=== PATIENT | female | born 1940 | race Caucasian/White ===

== ENCOUNTER 2019-05-22 10:01 | Inpatient (IN) | payer MEDICARE, SELFPAY ==
[2019-05-22] VITALS (7 sets, daily range): BP systolic 103–150; BP diastolic 47–79; PULSE 68–101; RESP 16–20; TEMP 36.6–37.6; O2SAT 96–100; BMI 19.4
--- NOTE | ~2019-05-22 | US_ITS ---
EXAMINATION: US venous doppler LE RT DATE: 05/23/2019 08:48 INDICATION: Right lower limb edema TECHNIQUE: Bowen scale images without and with compression and Doppler images of the right lower extre mity veins were obtained. COMPARISON: None. FINDINGS: The right common femoral vein, profunda femoral vein, femoral vein, popliteal vein, peronea l trunk, posterior tibial veins, and greater saphenous vein are patent. IMPRESSION: 1. Patent right lower extremity veins. No evidence of deep venous thrombosis. Reviewed, dictated and finalized at location B.
[2019-05-22] MEDS: SODIUM CHLORIDE 0.9% IV 500 ML 999 ML IV CONT (10:23)
--- NOTE | 2019-05-22 10:26 | ED.GENADULT ---
HPI - General Adult General Chief complaint: Extremity Injury, Lower <Ward Dodge PA-C - Last Filed: 05/22/19 11:54> Stated complaint: RASH <Ward Dodge PA-C - Last Filed: 05/22/19 11:54> Source: patient <Ward Dodge PA-C - Last Filed: 05/22/19 11:54> Mode of arrival: ambulatory <Ward Dodge PA-C - Last Filed: 05/22/19 11:54> Limitations: no limitations <Ward Dodge PA-C - Last Filed: 05/22/19 11:54> History of Present Illness HPI narrative: Patient is a 78-year-old female who presents from home per EMS for evaluation of infection of the right leg with skin tear to the anterior tillman and with resultant redness tenderness and swelling from the foot to the level of the knee patient complains of mild aching pain worse with activity. Patient is a limited historian secondary to dementia. <Ward Dodge PA-C - Last Filed: 05/22/19 11:54> Related Data Home medications: Home Medications Medication Instructions Recorded Confirmed conjugated estrogens [Premarin] 0.625 mg PO DAILY 05/22/19 hydrochlorothiazide 25 mg PO DAILY 05/22/19 ibuprofen 800 mg PO TID PRN 05/22/19 levothyroxine 88 mcg PO DAILY 05/22/19 simvastatin 40 mg PO DAILY 05/22/19 <Ward Dodge PA-C - Last Filed: 05/22/19 11:54> Allergies/adverse reactions: Allergies Allergy/AdvReac Type Severity Reaction Status Date / Time No Known Allergies Allergy Verified 05/22/19 10:11 <Ward Dodge PA-C - Last Filed: 05/22/19 11:54> Review of Systems Review of Systems: Narrative: Review of systems somewhat limited secondary to history of dementia <Ward Dodge PA-C - Last Filed: 05/22/19 11:54> All systems reviewed & are unremarkable except as noted in HPI and below <Ward Dodge PA-C - Last Filed: 05/22/19 11:54> PMFSH Past Medical History Medical History: Medical History (Updated 05/22/19 @ 11:39 by Ward Dodge PA-C) Dementia <Ward Dodge PA-C - Last Filed: 05/22/19 11:54> Social History Social History: Social History (Updated 05/22/19 @ 10:27 by Ward Dodge PA-C) Smoking status: Never smoker Living arrangements: with family Gender identity (if verbalized by the patient): Female <Ward Dodge PA-C - Last Filed: 05/22/19 11:54> Exam Narrative: Exam Narrative: GENERAL: Well-appearing, well-nourished, and in no acute distress. HEAD: Normocephalic, atraumatic. EYES: PERRLA and EOMI. ENT: Nares clear, no rhinorrhea or epistaxis. Mucous membranes moist. CHEST: Clear to auscultation. No respiratory distress. No wheezes rales or rhonchi HEART: Regular rate and rhythm. No murmur heard. Normal peripheral pulses. ABDOMEN: Soft, nontender, nondistended EXTREMITIES: Normal range of motion. No edema. Patient with skin tear to the anterior right tillman with some clear discharge dried over the lower tillman with erythema that is splotchy circumferential and extends from the foot up to the level of the knee SKIN: Warm, dry, no rash. NEURO: No focal deficits. Alert and oriented x3. Neurovascularly intact. Capillary refill less than 2-second PSYCH: Normal mood and affect. <Ward Dodge PA-C - Last Filed: 05/22/19 11:54> Course Course Emergency Course: Patient aware of case findings treatment plan and diagnosis to the best of her abilities given her dementia will be kept in hospital <Ward Dodge PA-C - Last Filed: 05/22/19 11:54> COFFEE GROWER/PA Physician Supervision For this encounter, I have reviewed the PA documentation, treatment plan and medical decision making: And I have had [id number] time with the patient. On exam heart regular rate and rhythm without murmur lungs clear to all station bilaterally, the right lower extremity has erythematous rash consistent with cellulitis agrees plan for admission at this time with further inpatient treatment <Joao Whitten DO - Last Filed: 05/22/19 12:20> Consultat
[2019-05-22 10:33] LABS: Basophils Percent Auto 0.1 % (0.2-1.2); Eosinophils Absolute Auto 0.4 K/mm3 (0-0.3); Eosinophils Percent Auto 1.7 % (0-4.4); Hematocrit 33.8 % (37.0-47.0); Hemoglobin 11.5 g/dL (12.0-15.0); Immature Granulocyte Absolute 0.25 K/mm3 (0.00-0.031); Immature Granulocyte Percent A 1.1 % (0-0.5); Lymphocytes Percent Auto 2.1 % (18.3-44.2); Mean Corpuscular Hemoglobin 30.4 pg (26-34); Mean Corpuscular Volume 89.4 fl (80-100); Mean Platelet Volume 9.8 fl (7.4-10.4); Monocytes Absolute Auto 0.7 K/mm3 (0.1-0.6); Monocytes Percent Auto 2.9 % (2.6-8.5); Neutrophils Absolute Auto 21.6 K/mm3 (1.3-6.7); Neutrophils Percent Auto 92.1 % (45.5-73.1); Platelet Count Result 359 k/mm3 (150-375); Red Blood Count 3.78 M/mm3 (4.2-5.4); Red Cell Distribution Width 13.8 % (11.5-14.5); White Blood Count 23.5 K/mm3 (4.5-10.0)
[2019-05-22 10:37] LABS: Add Urine Microscopic? YES; Appearance Urine Cloudy (Clear); Bacteria Urine Trace /hpf; Bilirubin Urine Negative (Negative); Blood Urine 1+ (Negative); Color Urine Yellow (Yellow); Glucose Urine UA Negative (Negative); Ketones Urine Negative (Negative); Leukocyte Esterase Ur Negative LEU/UL (Negative); Nitrate Urine Negative (Negative); Protein Urine 2+ mg/dL (Negative); Specific Grav Ur 1.014 (1.001-1.035); Squamous Epithelial Cell Urine Few /hpf (Few); Urobilinogen Urine Negative mg/dL (<2.0)
[2019-05-22 10:44] LABS: Prothrombin Time 13.1 Seconds (11.1-14.7)
[2019-05-22 10:45] LABS: Partial Thromboplastin Time 35.4 SECONDS (22.3-36.8)
[2019-05-22 10:47] LABS: Lactic Acid Reflex 0.9 mmol/L (0.7-2.1)
[2019-05-22 10:54] LABS: Alanine Aminotransferase 36 U/L (4-35); Albumin Level 3.9 g/dL (3.5-5.1); Alkaline Phosphatase 203 U/L (38-126); Aspartate Amino Transferase 43 U/L (14-36); Bilirubin,Total 0.8 mg/dL (0.2-1.3); Blood Urea Nitrogen 51 mg/dL (7-17); Calcium 9.1 mg/dL (8.4-10.2); Carbon Dioxide 24 mmol/L (22-30); Chloride 97 mmol/L (98-107); Estimated CRCL calculation 16 ml/min; Estimated Glomerular Filt Rate 21; Glucose 102 mg/dL (65-105); Potassium 2.7 mmol/L (3.4-5.0); Sodium 139 mmol/L (137-145)
--- NOTE | 2019-05-22 10:58 | PC.NURSE ---
Spoke with stepdaughter, family is unsure of pt's meds because she locks them up. Family called pharmacy to get list. Pt had scripts for potassium and hydroxyzine but has not filled them for a long time. Other meds have been filled in February.
--- NOTE | 2019-05-22 11:18 | ECG_ITS ---
Measurements Intervals [place] Rate: 95 P: 70 PA: 151 QRS: 3 QRSD: 100 T: 67 QT: 288 QTc: 364 Interpretive Statements SINUS RHYTHM ATRIAL AND VENTRICULAR PREMATURE COMPLEXES NONSPECIFIC ST & T-WAVE ABNORMALIT- ANTEROLAT/LAT LEADS BASELINE ARTIFACT- I, II, III, AVR, AVL, AVF, V1 BORDERLINE ECG Electronically Signed On 05-22-2019 12:39:17 CDT by Stephan Branham D.O.
[2019-05-22] MEDS: POTASSIUM CHLORIDE 20 MEQ PACKET (FOR LIQUID) 40 MEQ PO (11:40)
[2019-05-22 11:41] LABS: Magnesium 1.6 mg/dL (1.6-2.3)
[2019-05-22 11:49] LABS: CRP 39.1 mg/dL (<1.0)
[2019-05-22] MEDS: MAGNESIUM SULF 2 GM/WATER 50ML 2 GM/50 ML BAG IVPB (11:57)
--- NOTE | 2019-05-22 13:06 | ADMGEN ---
This patient, Karon Zayas, was admitted to 2 Medical Room 251-. Patient/family oriented to hospital policies and general routines including ID bracelet, bed and alarms, visiting hours, pain management, procedures, bathroom and other care routines, personal items, smoking policy, room service/diet, and visiting hours. Valuables list has been completed. Information on how to activate the Rapid Response Team has been discussed. Patient/Family are encouraged to report perceived risks to care and to ask questions if they do not understand what they are told or what they should do.
[2019-05-22 14:12] LABS: Creatine Kinase 34 U/L (30-135); Magnesium 2.5 mg/dL (1.6-2.3); Phosphorus 3.3 mg/dL (2.5-4.5)
[2019-05-22 14:25] LABS: Iron 17 ug/dL (37-170)
[2019-05-22 14:35] LABS: Percent Iron Saturation 5 % (20-50)
[2019-05-22 14:44] LABS: Hepatitis B Surface Antigen Negative (Negative)
[2019-05-22 14:49] LABS: HAV RESULT Negative (Negative); Hepatitis B Core IgM Result Negative (Negative)
[2019-05-22] MEDS: SODIUM CHLORIDE 0.9% IV 1,000 ML 100 ML IV CONT (15:00)
[2019-05-22 15:01] LABS: Hepatitis C Virus Antibody Negative (Negative)
[2019-05-22 15:12] LABS: Vitamin B12 > 1000.0 pg/mL (239-931)
--- NOTE | 2019-05-22 17:00 | PM.IMHP ---
H&P: [facility] History of Present Illness Chief complaint: Fall, right leg wound. Narrative: Karon Zayas is a 78-year-old female with dementia, hypertension, and hypothyroidism who presented to the emergency department earlier today via EMS from home for evaluation after a fall and of a right leg wound. Given her dementia, she is unable to provide an accurate history. According to EMS run report, the patient lives with her step daughter who reported that the patient slid out of her chair earlier today and was refusing to let the daughter help her up. There was no head trauma or loss of consciousness. She was not injured when she slid out of the chair onto her buttocks. It was noted that she had significant erythema to the right lower extremity, and with further questioning it has been present for a couple of weeks. They assumed it was some sort of rash and have been treating it with topical steroids without benefit. She was found to have cellulitis of that limb and is being admitted in this setting. At the time my evaluation, the patient is sitting in a chair at the side of the bed in is eating dinner. She has a wound noted on that right leg, but cannot tell me how or when it happened (appears old). She does complain of a burning pain in the right leg, mainly with touch. She has had some chills but denies fever and sweats. To her knowledge, she has no history of venous thromboembolism. She denies nausea and vomiting. 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 Review of Systems Review of Systems: Narrative: Unable to obtain accurately given her dementia. Except as documented in the HPI, she states no for every other question asked of her. [facility] [place] Past Medical History Medical History (Updated 05/22/19 @ 13:33 by Aury Jara PA-C) Dementia History of MRSA infection Hyperlipidemia Hypertension Hypothyroidism Surgical History Surgical History (Updated 05/22/19 @ 13:28 by Aury Jara PA-C) History of hysterectomy History of pelvic surgery Pelvic floor reconstruction for prolapse. Social History Social History (Updated 05/22/19 @ 21:39 by Auyr Jara PA-C) Social History: The patient lives in [place]. Her stepdaughter, Emily, apparently lives at home with her. She has a dog as well. She cannot provide me with her family history, but tells me that she had 1 daughter who is with unclear cause of . She is a lifelong nonsmoker and denies alcohol and drug use. She tells me she used to work at [employer] in [facility]. She designates her stepsonShahbaz, as her surrogate decision maker. She wishes to be a full code. Spiritual care concerns: No Agree to blood products: Yes Meds Home Medications and Allergies Home Medications Medication Instructions Recorded Confirmed Type calcium carbonate [Tums Extra 300 mg PO TID PRN 05/22/19 05/22/19 History Strength Smoothies] chlorzoxazone 500 mg PO HS 05/22/19 05/22/19 History cholecalciferol (vitamin D3) 125 mcg PO DIRECTED 05/22/19 05/22/19 History [Vitamin D3] conjugated estrogens [Premarin] 0.625 mg PO DAILY 05/22/19 05/22/19 History fexofenadine [Briseida Allergy] 60 mg PO Q12H 05/22/19 05/22/19 History hydrochlorothiazide 25 mg PO DAILY 05/22/19 05/22/19 History ibuprofen 800 mg PO TID PRN 05/22/19 05/22/19 History levothyroxine 88 mcg PO DAILY 05/22/19 05/22/19 History omega [id number]-fish oil [[place]-3 1 cap PO DAILY 05/22/19 05/22/19 History Fish Oil] potassium chloride 10 meq PO DAILY 05/22/19 05/22/19 History simvastatin 40 mg PO DAILY 05/22/19 05/22/19 History Allergies Allergy/AdvReac Type Severity Reaction Status Date / Time levofloxacin Allergy Other Verified 05/22/19 13:49 atorvastatin AdvReac Muscle Pain Verified 05/22/19 13:48 Vital Signs Vital Signs - 24 hr 05/22/19 10:01 05/22/19 12:09 05/22/19 12:47 Temperature 97.8 F 99.7 F H Pu
[2019-05-22 17:22] LABS: Free T4 Free Thyroxine Reflex 0.96 ng/dL (0.78-2.19)
[2019-05-22 22:24] LABS: Total Triiodothyronine (T3) 0.51 NG/ML (0.97-1.69)
[2019-05-22 23:53] LABS: Folic Acid > 20.0 ng/mL (2.76->20)
[2019-05-23] VITALS (9 sets, daily range): BP systolic 104–133; BP diastolic 58–61; PULSE 67–92; RESP 18–20; TEMP 36.3–36.6; O2SAT 97–100
[2019-05-23] MEDS: SODIUM CHLORIDE 0.9% IV 1,000 ML 100 ML IV CONT ×2 (03:31→14:39)
[2019-05-23 05:08] LABS: Basophils Absolute Auto 0.2 K/mm3 (0.0-0.1); Basophils Percent Auto 0.7 % (0.2-1.2); Eosinophils Absolute Auto 0.3 K/mm3 (0-0.3); Eosinophils Percent Auto 1.6 % (0-4.4); Hematocrit 28.6 % (37.0-47.0); Hemoglobin 9.8 g/dL (12.0-15.0); Immature Granulocyte Absolute 0.89 K/mm3 (0.00-0.031); Immature Granulocyte Percent A 4.4 % (0-0.5); Lymphocytes Absolute Auto 0.71 K/mm3 (0.9-3.2); Lymphocytes Percent Auto 3.5 % (18.3-44.2); Mean Corpuscular HGB Conc 34.3 g/dl (32-36); Mean Corpuscular Hemoglobin 30.6 pg (26-34); Mean Corpuscular Volume 89.4 fl (80-100); Mean Platelet Volume 9.5 fl (7.4-10.4); Monocytes Absolute Auto 0.7 K/mm3 (0.1-0.6); Monocytes Percent Auto 3.6 % (2.6-8.5); Neutrophils Absolute Auto 17.5 K/mm3 (1.3-6.7); Neutrophils Percent Auto 86.2 % (45.5-73.1); Platelet Count Result 318 k/mm3 (150-375); Red Cell Distribution Width 13.8 % (11.5-14.5); White Blood Count 20.3 K/mm3 (4.5-10.0)
[2019-05-23 05:47] LABS: Alanine Aminotransferase 23 U/L (4-35); Albumin Level 2.9 g/dL (3.5-5.1); Alkaline Phosphatase 162 U/L (38-126); Aspartate Amino Transferase 28 U/L (14-36); Bilirubin,Total 0.5 mg/dL (0.2-1.3); Blood Urea Nitrogen 32 mg/dL (7-17); Calcium 8.3 mg/dL (8.4-10.2); Carbon Dioxide 21 mmol/L (22-30); Chloride 106 mmol/L (98-107); Estimated CRCL calculation 32 ml/min; Estimated Glomerular Filt Rate 48; Glucose 106 mg/dL (65-105); Potassium 2.7 mmol/L (3.4-5.0); Sodium 137 mmol/L (137-145)
[2019-05-23] MEDS: LEVOTHYROXINE SODIUM 88 MCG TABLET PO (06:29)
[2019-05-23] MEDS: POTASSIUM CHLORIDE 20 MEQ TABLET 80 MEQ PO (06:30)
[2019-05-23] MEDS: POTASSIUM CHLORIDE 10 MEQ TABLET.ER PO (09:07)
--- NOTE | 2019-05-23 10:39 | PM.IMPN ---
Progress Note: A&P Assessment and Plan (1) Fall: Code(s): W19.XXXA - Unspecified fall, initial encounter Status: Acute Assessment and Plan: Accidental fall, continue PT/ OT for falls (2) Hypertension: Code(s): I10 - Essential (primary) hypertension Status: Chronic Assessment and Plan: Chronic and stable continue to monitor, Bp is 120/60 (3) Dementia: Code(s): F03.90 - Unspecified dementia without behavioral disturbance Status: Chronic Assessment and Plan: Chronic and stable, pt is on chlorzoxane (4) Elevated LFTs: Code(s): R94.5 - Abnormal results of liver function studies Status: Acute (5) Normocytic anemia: Code(s): D64.9 - Anemia, unspecified Status: Acute Assessment and Plan: Hb is 9.8 (6) Hypokalemia: Code(s): E87.6 - Hypokalemia Status: Acute Assessment and Plan: Potassium is 2.7, continue to supplement. (7) Acute kidney injury: Code(s): N17.9 - Acute kidney failure, unspecified Status: Resolved Assessment and Plan: Creat is 1.1 (8) Cellulitis of right leg: Code(s): L03.115 - Cellulitis of right lower limb Status: Acute Assessment and Plan: Pt is on iv cefazolin, can swab leg when blister opens. Venous doppler neg, Pt seen by wound care, adviced to keep wound open. (9) Sepsis: Code(s): A41.9 - Sepsis, unspecified organism Status: Acute Assessment and Plan: WCc is 20,000. BC are pending. Pt is on iv cefazolin. Continue to watch for low-grade fever, leukocytosis. Subjective Date/time seen: 05/23/19 10:39 Interval history: 78-year-old female with dementia, hypertension, and hypothyroidism who presented to the emergency department earlier today via EMS from home for evaluation after a fall and of a right leg wound. Pt is pleasantly confused. Pt has a skin tear on her R leg with surrounding redness and cellulitis. Sounds like a accidental fall. Review of Systems Constitutional: Constitutional: Denies body ache(s), Denies fatigue, Denies lethargy and Reports weakness (generalised weakness ) Cardiovascular: Cardiovascular: Reports no additional cardiovascular complaints Respiratory: Respiratory: Denies no additional respiratory complaints Gastrointestinal: Gastrointestinal: Denies no additional gastrointestinal complaints Musculoskeletal: Comments: R leg wound with skin tear Exam Narrative: Exam Narrative: General: Elderly lady pleasantly confused. HEENT: Normocephalic, atraumatic. PERRLA Neck: Supple. Respiratory: Lungs are clear to auscultation bilaterally. Cardiovascular: Regular rate and rhythm with S1-S2. Gastrointestinal: Abdomen is soft, nontender, and nondistended with positive bowel sounds. Skin: Warm and dry. R lower leg red patches, with R skin tear dried with some blister area Extremities: No cyanosis or clubbing. Neurological: Disoriented x3 Psychiatric: Pleasantly confused and cooperative. Objective Data Vital Signs Vital Signs: Vital Signs - 24 hr 05/22/19 12:09 05/22/19 12:47 05/22/19 14:00 Temperature 37.6 C H 36.7 C Pulse Rate 90 68 82 Respiratory Rate 18 19 16 Blood Pressure 119/62 109/79 103/47 L Pulse Oximetry 98 96 98 05/22/19 16:00 05/22/19 20:00 05/22/19 22:00 Temperature 36.9 C Pulse Rate 80 98 97 Respiratory Rate 16 20 Blood Pressure 125/58 L Pulse Oximetry 98 100 05/23/19 00:00 05/23/19 04:00 05/23/19 05:50 Temperature 36.6 C Pulse Rate 90 84 86 Respiratory Rate 20 Blood Pressure 120/60 Pulse Oximetry 97 Intake/Output Intake/Output: Intake & Output 05/20/19 05/21/19 05/22/19 05/23/19 23:59 23:59 23:59 23:59 Intake Total 1250 1240 Output Total 900 550 Balance 350 690 Meds/Results Medications: Active Medications Generic Name Dose Route Start Last Admin Trade Name Freq PRN Reason Stop Dose Admin Calcium Carbonate 300 m
[2019-05-23 14:51] LABS: Potassium 2.6 mmol/L (3.4-5.0)
[2019-05-24] VITALS (9 sets, daily range): BP systolic 124–125; BP diastolic 59–70; PULSE 75–96; RESP 16–18; TEMP 36.3–36.8; O2SAT 96–100
[2019-05-24] MEDS: SODIUM CHLORIDE 0.9% IV 1,000 ML 100 ML IV CONT ×2 (04:03→14:03)
[2019-05-24] MEDS: LEVOTHYROXINE SODIUM 88 MCG TABLET PO (05:44)
[2019-05-24] MEDS: POTASSIUM CHLORIDE 10 MEQ TABLET.ER PO (08:19)
[2019-05-24] MEDS: POTASSIUM CHLORIDE 20 MEQ TABLET.ER 40 MEQ PO (09:04)
[2019-05-24 09:24] LABS: Hematocrit 31.6 % (37.0-47.0); Hemoglobin 10.5 g/dL (12.0-15.0); Mean Corpuscular HGB Conc 33.2 g/dl (32-36); Mean Corpuscular Hemoglobin 30.3 pg (26-34); Mean Corpuscular Volume 91.1 fl (80-100); Mean Platelet Volume 9.3 fl (7.4-10.4); Platelet Count Result 336 k/mm3 (150-375); Red Blood Count 3.47 M/mm3 (4.2-5.4); Red Cell Distribution Width 14.3 % (11.5-14.5); White Blood Count 17.2 K/mm3 (4.5-10.0)
[2019-05-24 09:49] LABS: Blood Urea Nitrogen 15 mg/dL (7-17); Calcium 7.9 mg/dL (8.4-10.2); Carbon Dioxide 21 mmol/L (22-30); Chloride 108 mmol/L (98-107); Estimated CRCL calculation 52 ml/min; Estimated Glomerular Filt Rate > 60; Glucose 120 mg/dL (65-105); Potassium 3.4 mmol/L (3.4-5.0); Sodium 137 mmol/L (137-145)
--- NOTE | 2019-05-24 11:55 | PM.IMPN ---
Progress Note: A&P Assessment and Plan (1) Fall: Code(s): W19.XXXA - Unspecified fall, initial encounter Status: Acute Assessment and Plan: Accidental fall, continue PT/ OT for falls (2) Hypertension: Code(s): I10 - Essential (primary) hypertension Status: Chronic Assessment and Plan: Chronic and stable continue to monitor, Bp is 120/70 (3) Dementia: Code(s): F03.90 - Unspecified dementia without behavioral disturbance Status: Chronic Assessment and Plan: Chronic and stable, pt is on chlorzoxane (4) Elevated LFTs: Code(s): R94.5 - Abnormal results of liver function studies Status: Resolved (5) Normocytic anemia: Code(s): D64.9 - Anemia, unspecified Status: Acute Assessment and Plan: Hb is 10.5 (6) Hypokalemia: Code(s): E87.6 - Hypokalemia Status: Resolved Assessment and Plan: Potassium is 3.4 (7) Acute kidney injury: Code(s): N17.9 - Acute kidney failure, unspecified Status: Resolved Assessment and Plan: Creat is 0.7 (8) Cellulitis of right leg: Code(s): L03.115 - Cellulitis of right lower limb Status: Acute Assessment and Plan: Pt is on iv cefazolin, can swab leg when blister opens. Venous doppler neg, Pt seen by wound care, adviced to keep wound open. (9) Sepsis: Code(s): A41.9 - Sepsis, unspecified organism Status: Acute Assessment and Plan: WCc is 17,000. BC are pending. wound culture is pending. Pt is on iv cefazolin. Continue to watch for low-grade fever and leukocytosis. hopeful discharge in 1-2 days time. Subjective Date/time seen: 05/24/19 11:55 Interval history: 78-year-old female with dementia, hypertension, and hypothyroidism who presented to the emergency department earlier today via EMS from home for evaluation after a fall and of a right leg wound. Pt is pleasantly confused. Pt has a superficial wound and blisters on her R leg with surrounding redness and cellulitis. Sounds like a accidental fall. Review of Systems Constitutional: Constitutional: Denies body ache(s), Denies fatigue, Denies lethargy and Reports weakness (generalised weakness ) Cardiovascular: Cardiovascular: Reports no additional cardiovascular complaints Respiratory: Respiratory: Denies no additional respiratory complaints Gastrointestinal: Gastrointestinal: Denies no additional gastrointestinal complaints Neurologic: Reports weakness (generalised weakness ) Endocrine: Endocrine: Denies fatigue Exam Narrative: Exam Narrative: General: Elderly lady pleasantly confused. HEENT: Normocephalic, atraumatic. PERRLA Neck: Supple. Respiratory: Lungs are clear to auscultation bilaterally. Cardiovascular: Regular rate and rhythm with S1-S2. Gastrointestinal: Abdomen is soft, nontender, and nondistended with positive bowel sounds. Skin: Warm and dry. R lower leg red patches, with R leg wound dried with some blister area. Red area is clearing. Extremities: No cyanosis or clubbing. Neurological: Disoriented x3 Psychiatric: Pleasantly confused and cooperative. Objective Data Vital Signs Vital Signs: Vital Signs - 24 hr 05/23/19 12:00 05/23/19 13:29 05/23/19 16:00 Temperature 36.4 C Pulse Rate 92 67 87 Respiratory Rate 20 Blood Pressure 104/58 L Pulse Oximetry 100 05/23/19 20:00 05/23/19 21:11 05/24/19 00:00 Temperature 36.3 C L Pulse Rate 91 85 86 Respiratory Rate 18 Blood Pressure 133/61 Pulse Oximetry 99 05/24/19 04:00 05/24/19 06:14 05/24/19 08:00 Temperature 36.3 C L Pulse Rate 87 95 96 Respiratory Rate 18 Blood Pressure 125/70 Pulse Oximetry 96 Intake/Output Intake/Output: Intake & Output 05/21/19 05/22/19 05/23/19 05/24/19 23:59 23:59 23:59 23:59 Intake Total 1250 3839 1051 Output Total 900 1100 1200 Balance 350 2509 -204 Meds/Results Medications: Active Medications G
--- NOTE | 2019-05-24 15:47 | PC.NURSE ---
Patient very upset and stating Take this bandage off my leg. I can't stand it anymore! I asked the patient if her leg was hurting and she stated yes . I offered pain medication but patient stated I don't want pain medication. I just want this dressing off! I explained to patient that her leg is draining and the dressing is keeping the drainage contained. Patient states I don't care. I want it to drain out in the bed. Patient adamant and trying to pull at dressing. Removed dressing. Assisted patient back to bed and placed a chux pad under patient's RLE. Also placed a chux pad on top of patients leg. Patient now satisfied and resting quietly in bed.
[2019-05-25] VITALS (9 sets, daily range): BP systolic 126–134; BP diastolic 58–84; PULSE 77–102; RESP 18–20; TEMP 36.8–37; O2SAT 96–100
[2019-05-25] MEDS: SODIUM CHLORIDE 0.9% IV 1,000 ML 100 ML IV CONT ×2 (01:45→18:13)
[2019-05-25 05:25] LABS: Hematocrit 30.7 % (37.0-47.0); Hemoglobin 10.2 g/dL (12.0-15.0); Mean Corpuscular HGB Conc 33.2 g/dl (32-36); Mean Corpuscular Hemoglobin 30.7 pg (26-34); Mean Corpuscular Volume 92.5 fl (80-100); Mean Platelet Volume 9.1 fl (7.4-10.4); Platelet Count Result 352 k/mm3 (150-375); Red Blood Count 3.32 M/mm3 (4.2-5.4); Red Cell Distribution Width 14.3 % (11.5-14.5); White Blood Count 13.6 K/mm3 (4.5-10.0)
[2019-05-25 05:35] LABS: Blood Urea Nitrogen 13 mg/dL (7-17); Calcium 7.9 mg/dL (8.4-10.2); Carbon Dioxide 23 mmol/L (22-30); Chloride 107 mmol/L (98-107); Estimated CRCL calculation 52 ml/min; Estimated Glomerular Filt Rate > 60; Glucose 94 mg/dL (65-105); Potassium 3.7 mmol/L (3.4-5.0); Sodium 137 mmol/L (137-145)
[2019-05-25] MEDS: LEVOTHYROXINE SODIUM 88 MCG TABLET PO (05:52)
[2019-05-25] MEDS: OMEGA 3 POLYUNSAT FATTY ACIDS 1 GM CAP PO (08:40)
[2019-05-25] MEDS: POTASSIUM CHLORIDE 20 MEQ TABLET.ER 40 MEQ PO (08:41)
[2019-05-25] MEDS: LORATADINE 10 MG TABLET PO (08:41)
[2019-05-25] MEDS: CHOLECALCIFEROL 1,000 UNIT TABLET 5000 UNITS PO (08:41)
[2019-05-25] MEDS: POTASSIUM CHLORIDE 10 MEQ TABLET.ER PO (08:42)
--- NOTE | 2019-05-25 11:51 | PM.IMPN ---
Progress Note: A&P Assessment and Plan (1) Fall: Code(s): W19.XXXA - Unspecified fall, initial encounter Status: Acute Assessment and Plan: Accidental fall, continue PT/ OT for falls (2) Hypertension: Code(s): I10 - Essential (primary) hypertension Status: Chronic Assessment and Plan: Chronic and stable continue to monitor, Bp is 128/58 (3) Dementia: Code(s): F03.90 - Unspecified dementia without behavioral disturbance Status: Chronic Assessment and Plan: Chronic and stable, pt is on chlorzoxane (4) Elevated LFTs: Code(s): R94.5 - Abnormal results of liver function studies Status: Resolved (5) Normocytic anemia: Code(s): D64.9 - Anemia, unspecified Status: Acute Assessment and Plan: Hb is 10.2 (6) Hypokalemia: Code(s): E87.6 - Hypokalemia Status: Resolved Assessment and Plan: Potassium is 3.7 (7) Acute kidney injury: Code(s): N17.9 - Acute kidney failure, unspecified Status: Resolved Assessment and Plan: Creat is 0.7 (8) Cellulitis of right leg: Code(s): L03.115 - Cellulitis of right lower limb Status: Acute Assessment and Plan: Pt is on iv cefazolin, can swab leg when blister opens. Venous doppler neg, Pt seen by wound care, advised to keep wound open. Bc and wound culture negative to date. (9) Sepsis: Code(s): A41.9 - Sepsis, unspecified organism Status: Acute Assessment and Plan: WCc is 13,000. Pt is on iv cefazolin. Hopeful discharge in 1-2 days time once cultures are back. Subjective Date/time seen: 05/25/19 11:51 Interval history: 78-year-old female with dementia, hypertension, and hypothyroidism who presented to the emergency department earlier today via EMS from home for evaluation after a fall and of a right leg wound. Pt is pleasantly confused. Pt has a superficial wound and blisters on her R leg with surrounding redness and cellulitis. Sounds like a accidental fall. Review of Systems Constitutional: Constitutional: Reports weakness (generalised weakness ) Cardiovascular: Cardiovascular: Reports no additional cardiovascular complaints Respiratory: Respiratory: Denies no additional respiratory complaints Gastrointestinal: Gastrointestinal: Denies no additional gastrointestinal complaints Neurologic: Reports weakness (generalised weakness ) Exam Narrative: Exam Narrative: General: Elderly lady pleasantly confused. HEENT: Normocephalic, atraumatic. PERRLA Neck: Supple. Respiratory: Lungs are clear to auscultation bilaterally. Cardiovascular: Regular rate and rhythm with S1-S2. Gastrointestinal: Abdomen is soft, nontender, and nondistended with positive bowel sounds. Skin: Warm and dry. R lower leg red patches, with R leg wound dried with some blister area. Red area is clearing. Extremities: No cyanosis or clubbing. Neurological: Disoriented x3 Psychiatric: Pleasantly confused and cooperative. Objective Data Vital Signs Vital Signs: Vital Signs - 24 hr 05/24/19 12:00 05/24/19 14:00 05/24/19 16:00 Temperature 36.8 C Pulse Rate 80 80 84 Respiratory Rate 18 Blood Pressure 124/62 Pulse Oximetry 98 05/24/19 20:00 05/24/19 21:37 05/25/19 00:00 Temperature 36.4 C Pulse Rate 80 75 81 Respiratory Rate 16 Blood Pressure 124/59 L Pulse Oximetry 100 05/25/19 04:00 05/25/19 06:03 05/25/19 08:00 Temperature 36.8 C Pulse Rate 77 102 H 84 Respiratory Rate 20 Blood Pressure 128/58 L Pulse Oximetry 100 Intake/Output Intake/Output: Intake & Output 05/22/19 05/23/19 05/24/19 05/25/19 23:59 23:59 23:59 23:59 Intake Total 1250 3839 3593 888 Output Total 900 1100 2150 1000 Balance 350 4999 1443 -112 Meds/Results Medications: Active Medications Generic Name Dose Route Start Last Admin Trade Name Freq PRN Reason Stop Dose Admin Calcium Carbonate 300 mg
[2019-05-26] VITALS (9 sets, daily range): BP systolic 119–133; BP diastolic 58–66; PULSE 71–97; RESP 16–20; TEMP 36.7–36.9; O2SAT 96–98
[2019-05-26] MEDS: SODIUM CHLORIDE 0.9% IV 1,000 ML 100 ML IV CONT ×2 (04:46→17:39)
[2019-05-26] MEDS: LEVOTHYROXINE SODIUM 88 MCG TABLET PO (05:34)
[2019-05-26 05:44] LABS: Hematocrit 29.9 % (37.0-47.0); Mean Corpuscular HGB Conc 33.4 g/dl (32-36); Mean Corpuscular Hemoglobin 30.3 pg (26-34); Mean Corpuscular Volume 90.6 fl (80-100); Mean Platelet Volume 8.8 fl (7.4-10.4); Platelet Count Result 352 k/mm3 (150-375); Red Cell Distribution Width 13.9 % (11.5-14.5); White Blood Count 12.5 K/mm3 (4.5-10.0)
[2019-05-26 05:57] LABS: Blood Urea Nitrogen 8 mg/dL (7-17); Carbon Dioxide 21 mmol/L (22-30); Chloride 108 mmol/L (98-107); Estimated CRCL calculation 60 ml/min; Estimated Glomerular Filt Rate > 60; Glucose 90 mg/dL (65-105); Potassium 3.7 mmol/L (3.4-5.0); Sodium 136 mmol/L (137-145)
[2019-05-26] MEDS: LORATADINE 10 MG TABLET PO (08:53)
[2019-05-26] MEDS: POTASSIUM CHLORIDE 10 MEQ TABLET.ER PO (08:54)
[2019-05-26] MEDS: POTASSIUM CHLORIDE 20 MEQ TABLET.ER 40 MEQ PO (08:54)
[2019-05-26] MEDS: OMEGA 3 POLYUNSAT FATTY ACIDS 1 GM CAP PO (08:54)
--- NOTE | 2019-05-26 11:45 | PM.IMPN ---
Progress Note: A&P Assessment and Plan (1) Fall: Code(s): W19.XXXA - Unspecified fall, initial encounter Status: Acute Assessment and Plan: Accidental fall, continue PT/ OT for falls (2) Hypertension: Code(s): I10 - Essential (primary) hypertension Status: Chronic Assessment and Plan: Chronic and stable continue to monitor, Bp is 133/59 (3) Dementia: Code(s): F03.90 - Unspecified dementia without behavioral disturbance Status: Chronic Assessment and Plan: Chronic and stable, pt is on chlorzoxane (4) Elevated LFTs: Code(s): R94.5 - Abnormal results of liver function studies Status: Resolved (5) Normocytic anemia: Code(s): D64.9 - Anemia, unspecified Status: Acute Assessment and Plan: Hb is 10.2 (6) Hypokalemia: Code(s): E87.6 - Hypokalemia Status: Resolved Assessment and Plan: Potassium is 3.7 (7) Acute kidney injury: Code(s): N17.9 - Acute kidney failure, unspecified Status: Resolved Assessment and Plan: Creat is 0.7 (8) Cellulitis of right leg: Code(s): L03.115 - Cellulitis of right lower limb Status: Acute Assessment and Plan: Pt is on iv cefazolin, can swab leg when blister opens. Venous doppler neg, Pt seen by wound care, advised to keep wound open. Bc and wound culture negative to date. Wcc are improving. (9) Sepsis: Code(s): A41.9 - Sepsis, unspecified organism Status: Acute Assessment and Plan: WCc is 12,000. Pt is on iv cefazolin. Hopeful discharge in 1-2 days time. Subjective Date/time seen: 05/26/19 11:45 Interval history: 78-year-old female with dementia, hypertension, and hypothyroidism who presented to the emergency department earlier today via EMS from home for evaluation after a fall and of a right leg wound. Pt is pleasantly confused. Pt has a superficial wound and blisters on her R leg with surrounding redness and cellulitis. Sounds like a accidental fall. Wound and redness are improving gradually. Review of Systems Review of Systems: All systems reviewed & are unremarkable except as noted in HPI and below Musculoskeletal: Comments: Superifical redness Psychiatric: Psychiatric: Reports confusion Exam Narrative: Exam Narrative: General: Elderly lady pleasantly confused. HEENT: Normocephalic, atraumatic. PERRLA Neck: Supple. Respiratory: Lungs are clear to auscultation bilaterally. Cardiovascular: Regular rate and rhythm with S1-S2. Gastrointestinal: Abdomen is soft, nontender, and nondistended with positive bowel sounds. Skin: Warm and dry. R lower leg red patches, with R leg wound dried with some blister area. Red area is clearing. Extremities: No cyanosis or clubbing. Neurological: Disoriented x3 Psychiatric: Pleasantly confused and cooperative. Objective Data Vital Signs Vital Signs: Vital Signs - 24 hr 05/25/19 12:00 05/25/19 14:00 05/25/19 16:00 Temperature 36.9 C Pulse Rate 84 79 78 Respiratory Rate 19 Blood Pressure 126/84 Pulse Oximetry 100 05/25/19 20:00 05/25/19 22:00 05/26/19 00:00 Temperature 37.0 C Pulse Rate 80 95 82 Respiratory Rate 18 Blood Pressure 134/80 Pulse Oximetry 96 05/26/19 04:00 05/26/19 06:00 Temperature 36.9 C Pulse Rate 71 75 Respiratory Rate 20 Blood Pressure 133/59 L Pulse Oximetry 96 Intake/Output Intake/Output: Intake & Output 05/23/19 05/24/19 05/25/19 05/26/19 23:59 23:59 23:59 23:59 Intake Total 3839 3593 2783 1120 Output Total 1100 2150 2150 600 Balance 2739 1443 633 520 Meds/Results Medications: Active Medications Generic Name Dose Route Start Last Admin Trade Name Freq PRN Reason Stop Dose Admin Calcium Carbonate 300 mg 05/22/19 21:43 Tums PO TID PRN Indigestion Fish Oil 1 gm 05/23/19 09:00 05/26/19 08:54 Lovaza PO 06/22/19 09:01 1 gm DAILY YANE Administration Cefaz
[2019-05-27] VITALS (9 sets, daily range): BP systolic 129–161; BP diastolic 57–64; PULSE 70–97; RESP 16–18; TEMP 36.4–37; O2SAT 96–98
[2019-05-27] MEDS: SODIUM CHLORIDE 0.9% IV 1,000 ML 100 ML IV CONT ×2 (02:41→13:58)
[2019-05-27 05:44] LABS: Basophils Absolute Auto 0.1 K/mm3 (0.0-0.1); Basophils Percent Auto 0.7 % (0.2-1.2); Eosinophils Absolute Auto 0.4 K/mm3 (0-0.3); Eosinophils Percent Auto 2.7 % (0-4.4); Hematocrit 28.4 % (37.0-47.0); Hemoglobin 9.4 g/dL (12.0-15.0); Immature Granulocyte Absolute 0.56 K/mm3 (0.00-0.031); Immature Granulocyte Percent A 4.1 % (0-0.5); Lymphocytes Absolute Auto 2.16 K/mm3 (0.9-3.2); Mean Corpuscular HGB Conc 33.1 g/dl (32-36); Mean Corpuscular Hemoglobin 30.3 pg (26-34); Mean Corpuscular Volume 91.6 fl (80-100); Mean Platelet Volume 8.7 fl (7.4-10.4); Monocytes Absolute Auto 1.2 K/mm3 (0.1-0.6); Monocytes Percent Auto 8.6 % (2.6-8.5); Neutrophils Absolute Auto 9.2 K/mm3 (1.3-6.7); Neutrophils Percent Auto 67.9 % (45.5-73.1); Platelet Count Result 355 k/mm3 (150-375); Red Cell Distribution Width 13.6 % (11.5-14.5); White Blood Count 13.5 K/mm3 (4.5-10.0)
[2019-05-27] MEDS: LEVOTHYROXINE SODIUM 88 MCG TABLET PO (05:46)
[2019-05-27 06:03] LABS: Blood Urea Nitrogen 7 mg/dL (7-17); Calcium 7.8 mg/dL (8.4-10.2); Carbon Dioxide 25 mmol/L (22-30); Chloride 108 mmol/L (98-107); Estimated CRCL calculation 60 ml/min; Estimated Glomerular Filt Rate > 60; Glucose 93 mg/dL (65-105); Potassium 3.4 mmol/L (3.4-5.0); Sodium 137 mmol/L (137-145)
[2019-05-27] MEDS: POTASSIUM CHLORIDE 20 MEQ TABLET.ER 40 MEQ PO (09:50)
[2019-05-27] MEDS: POTASSIUM CHLORIDE 10 MEQ TABLET.ER PO (09:51)
[2019-05-27] MEDS: OMEGA 3 POLYUNSAT FATTY ACIDS 1 GM CAP PO (09:51)
[2019-05-27] MEDS: LORATADINE 10 MG TABLET PO (09:51)
--- NOTE | 2019-05-27 11:25 | PC.NURSE ---
Patient refusing dressing change at this time and voicing that she would like dressing left off. Encouraged her to allow dressing change this afternoon.
--- NOTE | 2019-05-27 13:00 | PM.IMPN ---
Progress Note: A&P Assessment and Plan (1) Fall: Code(s): W19.XXXA - Unspecified fall, initial encounter Status: Acute Assessment and Plan: Accidental fall, continue PT/ OT for falls (2) Hypertension: Code(s): I10 - Essential (primary) hypertension Status: Chronic Assessment and Plan: Chronic and stable continue to monitor, Bp is 19/62 (3) Dementia: Code(s): F03.90 - Unspecified dementia without behavioral disturbance Status: Chronic Assessment and Plan: Chronic and stable, pt is on chlorzoxane (4) Elevated LFTs: Code(s): R94.5 - Abnormal results of liver function studies Status: Resolved (5) Normocytic anemia: Code(s): D64.9 - Anemia, unspecified Status: Acute Assessment and Plan: Hb is 10.2 will consult ict educator (6) Hypokalemia: Code(s): E87.6 - Hypokalemia Status: Resolved Assessment and Plan: Potassium is 3.4 (7) Acute kidney injury: Code(s): N17.9 - Acute kidney failure, unspecified Status: Resolved Assessment and Plan: Creat is 0.7 (8) Cellulitis of right leg: Code(s): L03.115 - Cellulitis of right lower limb Status: Acute Assessment and Plan: Pt is on iv cefazolin, can swab leg when blister opens. Venous doppler neg, Pt seen by wound care, advised to keep wound open. Bc and wound culture negative to date. Wcc are improving. (9) Sepsis: Code(s): A41.9 - Sepsis, unspecified organism Status: Acute Assessment and Plan: WCc is 13,500. Pt is on iv cefazolin. Hopeful discharge in 1-2 days time. Subjective Date/time seen: 05/27/19 13:00 Interval history: 78-year-old female with dementia, hypertension, and hypothyroidism who presented to the emergency department earlier today via EMS from home for evaluation after a fall and of a right leg wound. Pt is pleasantly confused. Pt has a superficial wound and blisters on her R leg with surrounding redness and cellulitis. Sounds like a accidental fall. Wound and redness are improving gradually. Today denies any fever or chills Review of Systems Review of Systems: ROS unobtainable: Yes unobtainable due to medical condition Exam Narrative: Exam Narrative: Elderly frail confused Const: General: comfortable and no acute distress HENMT: General nose exam: Normal nares present Mouth: Yes moist mucous membranes Eyes: General: appearance normal, both eyes and all related structures Sclera: sclerae normal Neck: Neck: supple Resp: Effort & Inspection: normal respiratory effort Auscultation: clear to auscultation bilaterally Cardio: Rate: regular rate Rhythm: regular rhythm GI: Auscultation: normal bowel sounds Skin: Other: Right lower leg hyperemic edematous, Neuro: Other: Patient is confused Extrem: Other: Right lower extremity edema erythema Psych: Other: Confused Objective Data Vital Signs Vital Signs: Vital Signs - 24 hr 05/26/19 14:00 05/26/19 16:00 05/26/19 20:00 Temperature 98.5 F Pulse Rate 92 97 87 Respiratory Rate 18 Blood Pressure 119/66 Pulse Oximetry 98 05/26/19 22:00 05/27/19 00:00 05/27/19 04:00 Temperature 98.0 F Pulse Rate 84 78 81 Respiratory Rate 16 Blood Pressure 131/58 L Pulse Oximetry 98 05/27/19 06:00 05/27/19 08:00 05/27/19 12:00 Temperature 97.6 F Pulse Rate 72 70 77 Respiratory Rate 16 Blood Pressure 139/62 Pulse Oximetry 98 Intake/Output Intake/Output: Intake & Output 05/24/19 05/25/19 05/26/19 05/27/19 23:59 23:59 23:59 23:59 Intake Total 3593 2783 3070 1175 Output Total 2150 2150 1050 600 Balance 7035 686 3729 575 Meds/Results Medications: Active Medications Generic Name Dose Route Start Last Admin Trade Name Freq PRN Reason Stop Dose Admin Calcium Carbonate 300 mg 05/22/19 21:43 Tums PO TID PRN Indigestion Fish Oil 1 gm 05/23/19 09:00 05/27/19 09:51
[2019-05-28] VITALS (9 sets, daily range): BP systolic 118–129; BP diastolic 52–79; PULSE 68–93; RESP 16–18; TEMP 36.9–37.2; O2SAT 96–100
[2019-05-28] MEDS: SODIUM CHLORIDE 0.9% IV 1,000 ML 100 ML IV CONT ×2 (01:46→13:23)
[2019-05-28 06:03] LABS: Mean Corpuscular HGB Conc 32.1 g/dl (32-36); Mean Corpuscular Hemoglobin 30.1 pg (26-34); Mean Corpuscular Volume 93.6 fl (80-100); Mean Platelet Volume 8.7 fl (7.4-10.4); Platelet Count Result 366 k/mm3 (150-375); Red Blood Count 2.99 M/mm3 (4.2-5.4); Red Cell Distribution Width 13.7 % (11.5-14.5); White Blood Count 10.4 K/mm3 (4.5-10.0)
[2019-05-28] MEDS: LEVOTHYROXINE SODIUM 88 MCG TABLET PO (06:03)
[2019-05-28 06:07] LABS: Blood Urea Nitrogen 6 mg/dL (7-17); Calcium 7.7 mg/dL (8.4-10.2); Carbon Dioxide 26 mmol/L (22-30); Chloride 107 mmol/L (98-107); Estimated CRCL calculation 60 ml/min; Estimated Glomerular Filt Rate > 60; Glucose 87 mg/dL (65-105); Sodium 137 mmol/L (137-145)
[2019-05-28] MEDS: POTASSIUM CHLORIDE 10 MEQ TABLET.ER PO (09:50)
[2019-05-28] MEDS: LORATADINE 10 MG TABLET PO (09:50)
[2019-05-28] MEDS: CHOLECALCIFEROL 1,000 UNIT TABLET 5000 UNITS PO (09:50)
[2019-05-28] MEDS: POTASSIUM CHLORIDE 20 MEQ TABLET.ER 40 MEQ PO (09:50)
[2019-05-28] MEDS: OMEGA 3 POLYUNSAT FATTY ACIDS 1 GM CAP PO (09:50)
--- NOTE | 2019-05-28 13:25 | PCNFU ---
Nutrition Follow-Up Complete: Inadequate oral intake R/T reduced appetite as evidence by admission assessment PO intake of 75% or greater of meals and supplements to support weight maintenance Goal: progressing towards goal. Pt current nutrition is Renal Dialysis. Nutrition recommendation: Agree Last recorded weight is 59.3 kg. Bowel Motility:+BM 05/26 Labs Reviewed: BUN 6,Cr 0.6,Hct 28.0. Meds Noted:Synthyroid,Vit D, Fish Oil Additional Notes: Patient remains on a Renal Dialysis diet, intake reported about 50% of meals. Patient is also receiving Nepro BID providing an additional 425 kcals and 19 gms protein. Skin: Tear right lower leg documented. po intake, wt, labs every five days
--- NOTE | 2019-05-28 16:18 | PM.IMPN ---
Progress Note: A&P Assessment and Plan (1) Fall: Code(s): W19.XXXA - Unspecified fall, initial encounter Status: Acute Assessment and Plan: Accidental fall, continue PT/ OT for falls (2) Hypertension: Code(s): I10 - Essential (primary) hypertension Status: Chronic Assessment and Plan: Chronic and stable continue to monitor, Bp is 118/79 (3) Dementia: Code(s): F03.90 - Unspecified dementia without behavioral disturbance Status: Chronic Assessment and Plan: Chronic and stable, pt is on chlorzoxane (4) Elevated LFTs: Code(s): R94.5 - Abnormal results of liver function studies Status: Resolved Assessment and Plan: Most likely inflammatory now resolved (5) Normocytic anemia: Code(s): D64.9 - Anemia, unspecified Status: Acute Assessment and Plan: Hb is 10.2 will consult health promotion educator (6) Hypokalemia: Code(s): E87.6 - Hypokalemia Status: Resolved Assessment and Plan: Potassium is 4.0 (7) Acute kidney injury: Code(s): N17.9 - Acute kidney failure, unspecified Status: Resolved Assessment and Plan: Creat is 0.6 (8) Cellulitis of right leg: Code(s): L03.115 - Cellulitis of right lower limb Status: Acute Assessment and Plan: Pt is on iv cefazolin, can swab leg when blister opens. Venous doppler neg, Pt seen by wound care, advised to keep wound open. Bc and wound culture negative to date. Wcc are improving. 78-year-old female with dementia, hypertension, and hypothyroidism who presented to the emergency department earlier today via EMS from home for evaluation after a fall and of a right leg wound. Pt is pleasantly confused. Pt has a superficial wound and blisters on her R leg with surrounding redness and cellulitis. Wound culture is growing strep, blood cultures are negative so far, sounds like a accidental fall. Today the erythema and swelling is much better will continue present management. Patient is pleasantly confused denies any fever or chills (9) Sepsis: Code(s): A41.9 - Sepsis, unspecified organism Status: Acute Assessment and Plan: WCc is 13,500. Pt is on iv cefazolin. Hopeful discharge in 1-2 days time. Subjective Date/time seen: 05/28/19 16:18 Interval history: 78-year-old female with dementia, hypertension, and hypothyroidism who presented to the emergency department earlier today via EMS from home for evaluation after a fall and of a right leg wound. Pt is pleasantly confused. Pt has a superficial wound and blisters on her R leg with surrounding redness and cellulitis. Wound culture is growing strep, blood cultures are negative so far, sounds like a accidental fall. Today the erythema and swelling is much better will continue present management. Patient is pleasantly confused denies any fever or chills Review of Systems Review of Systems: All systems reviewed & are unremarkable except as noted in HPI and below Exam Narrative: Exam Narrative: Elderly frail confused Const: General: comfortable, no acute distress and confusion Orientation/consciousness: confusion HENMT: General nose exam: Normal nares present Mouth: Yes moist mucous membranes Eyes: General: appearance normal, both eyes and all related structures Sclera: sclerae normal Neck: Neck: supple Resp: Effort & Inspection: normal respiratory effort Auscultation: clear to auscultation bilaterally Cardio: Rate: regular rate Rhythm: regular rhythm GI: Auscultation: normal bowel sounds Skin: Other: Right lower leg hyperemic edematous, Neuro: General: confusion Other: Patient is confused Extrem: Other: Right lower extremity edema erythema Psych: Other: Confused Objective Data Vital Signs Vital Signs: Vital Signs - 24 hr 05/27/19 20:00 05/27/19 22:00 05/28/19 00:00 Temperature 98.6 F Pulse Rate 71 77 68 Respiratory Rate 18 Blood Pressure
[2019-05-29] VITALS (9 sets, daily range): BP systolic 108–133; BP diastolic 52–56; PULSE 73–106; RESP 15–18; TEMP 37.1–37.4; O2SAT 92–100
[2019-05-29] MEDS: SODIUM CHLORIDE 0.9% IV 1,000 ML 100 ML IV CONT ×3 (02:54→23:00)
[2019-05-29] MEDS: LEVOTHYROXINE SODIUM 88 MCG TABLET PO (06:04)
[2019-05-29 07:36] LABS: Hematocrit 30.6 % (37.0-47.0); Hemoglobin 9.9 g/dL (12.0-15.0); Mean Corpuscular HGB Conc 32.4 g/dl (32-36); Mean Corpuscular Hemoglobin 30.1 pg (26-34); Mean Platelet Volume 8.5 fl (7.4-10.4); Platelet Count Result 351 k/mm3 (150-375); Red Blood Count 3.29 M/mm3 (4.2-5.4); Red Cell Distribution Width 13.6 % (11.5-14.5); White Blood Count 9.8 K/mm3 (4.5-10.0)
[2019-05-29 07:48] LABS: Blood Urea Nitrogen 3 mg/dL (7-17); Calcium 7.7 mg/dL (8.4-10.2); Carbon Dioxide 25 mmol/L (22-30); Chloride 107 mmol/L (98-107); Estimated CRCL calculation 60 ml/min; Estimated Glomerular Filt Rate > 60; Glucose 93 mg/dL (65-105); Potassium 3.6 mmol/L (3.4-5.0); Sodium 138 mmol/L (137-145)
[2019-05-29] MEDS: POTASSIUM CHLORIDE 10 MEQ TABLET.ER PO (08:50)
[2019-05-29] MEDS: OMEGA 3 POLYUNSAT FATTY ACIDS 1 GM CAP PO (08:50)
[2019-05-29] MEDS: LORATADINE 10 MG TABLET PO (08:50)
[2019-05-29] MEDS: POTASSIUM CHLORIDE 20 MEQ TABLET.ER 40 MEQ PO (08:50)
--- NOTE | 2019-05-29 12:05 | PM.IMPN ---
Progress Note: A&P Assessment and Plan (1) Fall: Code(s): W19.XXXA - Unspecified fall, initial encounter Status: Acute Assessment and Plan: Accidental fall, continue PT/ OT for falls, patient is doing was able to ambulate 100 feet with PT (2) Hypertension: Code(s): I10 - Essential (primary) hypertension Status: Chronic Assessment and Plan: Chronic and stable continue to monitor, Bp is 133/52 (3) Dementia: Code(s): F03.90 - Unspecified dementia without behavioral disturbance Status: Chronic Assessment and Plan: Chronic and stable, pt is on chlorzoxane (4) Elevated LFTs: Code(s): R94.5 - Abnormal results of liver function studies Status: Resolved Assessment and Plan: Most likely inflammatory now resolved (5) Normocytic anemia: Code(s): D64.9 - Anemia, unspecified Status: Acute Assessment and Plan: Hb is 10.2 will consult childbirth educator (6) Hypokalemia: Code(s): E87.6 - Hypokalemia Status: Resolved Assessment and Plan: Potassium is 3.6 (7) Acute kidney injury: Code(s): N17.9 - Acute kidney failure, unspecified Status: Resolved Assessment and Plan: Creat is 0.6 (8) Cellulitis of right leg: Code(s): L03.115 - Cellulitis of right lower limb Status: Acute Assessment and Plan: 78-year-old female with dementia, hypertension, and hypothyroidism who presented to the emergency department earlier today via EMS from home for evaluation after a fall and of a right leg wound. Pt is pleasantly confused. Pt has a superficial wound and blisters on her R leg with surrounding redness and cellulitis. Wound culture is growing strep, blood cultures are negative so far, sounds like a accidental fall. Today the erythema and swelling is much better, patient was able to walk with PT 100 feet, will continue present management. Patient is pleasantly confused denies any fever or chills, awaiting placement, will discharge her tomorrow. (9) Sepsis: Code(s): A41.9 - Sepsis, unspecified organism Status: Acute Assessment and Plan: WCc is 13,500. Pt is on iv cefazolin. Hopeful discharge in 1-2 days time. Subjective Date/time seen: 05/29/19 12:05 Interval history: 78-year-old female with dementia, hypertension, and hypothyroidism who presented to the emergency department earlier today via EMS from home for evaluation after a fall and of a right leg wound. Pt is pleasantly confused. Pt has a superficial wound and blisters on her R leg with surrounding redness and cellulitis. Wound culture is growing strep, blood cultures are negative so far, sounds like a accidental fall. Today the erythema and swelling is much better, patient was able to walk with PT 100 feet, will continue present management. Patient is pleasantly confused denies any fever or chills, awaiting placement, will discharge her tomorrow. Review of Systems Review of Systems: All systems reviewed & are unremarkable except as noted in HPI and below Exam Narrative: Exam Narrative: Elderly frail confused Const: General: comfortable, no acute distress and confusion Orientation/consciousness: confusion HENMT: General nose exam: Normal nares present Mouth: Yes moist mucous membranes Eyes: General: appearance normal, both eyes and all related structures Sclera: sclerae normal Neck: Neck: supple Resp: Effort & Inspection: normal respiratory effort Auscultation: clear to auscultation bilaterally Cardio: Rate: regular rate Rhythm: regular rhythm GI: Auscultation: normal bowel sounds Skin: Other: Right lower leg hyperemic edematous, Neuro: General: confusion Other: Patient is confused Extrem: Other: Right lower extremity edema erythema Psych: Other: Confused Objective Data Vital Signs Vital Signs: Vital Signs - 24 hr 05/28/19 14:00 05/28/19 16:00 05/28/19 20:00 Temperature 98.9 F
--- NOTE | 2019-05-29 12:26 | PC.NURSE ---
May 28Apr edits made to correct administering nurse from Marcia Shah RN to Michael Martino RN.
--- NOTE | 2019-05-29 17:00 | PC.NURSE ---
Patient removed dressing to right leg and is refusing to let me replace the dressing.
[2019-05-30] VITALS: PULSE 88
[2019-05-30 04:00] VITALS: PULSE 84
[2019-05-30 05:23] LABS: Blood Urea Nitrogen 5 mg/dL (7-17); Calcium 8.1 mg/dL (8.4-10.2); Carbon Dioxide 24 mmol/L (22-30); Chloride 109 mmol/L (98-107); Estimated CRCL calculation 71 ml/min; Estimated Glomerular Filt Rate > 60; Glucose 92 mg/dL (65-105); Potassium 3.6 mmol/L (3.4-5.0); Sodium 137 mmol/L (137-145)
[2019-05-30] MEDS: LEVOTHYROXINE SODIUM 88 MCG TABLET PO (05:26)
[2019-05-30 05:30] LABS: Hematocrit 29.3 % (37.0-47.0); Hemoglobin 9.6 g/dL (12.0-15.0); Mean Corpuscular HGB Conc 32.8 g/dl (32-36); Mean Corpuscular Hemoglobin 30.3 pg (26-34); Mean Corpuscular Volume 92.4 fl (80-100); Mean Platelet Volume 8.8 fl (7.4-10.4); Platelet Count Result 416 k/mm3 (150-375); Red Blood Count 3.17 M/mm3 (4.2-5.4); Red Cell Distribution Width 13.5 % (11.5-14.5); White Blood Count 11.6 K/mm3 (4.5-10.0)
[2019-05-30 05:52] VITALS: BP 156/64; PULSE 87; RESP 20; TEMP 37; O2SAT 97
[2019-05-30 08:00] VITALS: PULSE 77; PULSE 87; RESP 20; O2SAT 97
[2019-05-30] MEDS: SODIUM CHLORIDE 0.9% IV 1,000 ML 100 ML IV CONT (09:12)
[2019-05-30] MEDS: POTASSIUM CHLORIDE 20 MEQ TABLET.ER 40 MEQ PO (09:14)
[2019-05-30] MEDS: CHOLECALCIFEROL 1,000 UNIT TABLET 5000 UNITS PO (09:14)
[2019-05-30] MEDS: OMEGA 3 POLYUNSAT FATTY ACIDS 1 GM CAP PO (09:15)
[2019-05-30] MEDS: LORATADINE 10 MG TABLET PO (09:15)
[2019-05-30] MEDS: POTASSIUM CHLORIDE 10 MEQ TABLET.ER PO (09:16)
[2019-05-30 12:00] VITALS: PULSE 80
--- NOTE | 2019-05-30 12:58 | PM.DS ---
DS: Diagnosis Admitting Diagnosis Admitting Diagnosis: Sepsis, unspecified organism Discharge Diagnosis (1) Fall: Code(s): W19.XXXA - Unspecified fall, initial encounter Status: Acute Assessment and Plan: Accidental fall, continue PT/ OT for falls, patient is doing was able to ambulate 100 feet with PT (2) Hypertension: Code(s): I10 - Essential (primary) hypertension Status: Chronic Assessment and Plan: Chronic and stable continue to monitor, Bp is 133/52 (3) Dementia: Code(s): F03.90 - Unspecified dementia without behavioral disturbance Status: Chronic Assessment and Plan: Chronic and stable, pt is on chlorzoxane (4) Elevated LFTs: Code(s): R94.5 - Abnormal results of liver function studies Status: Resolved Assessment and Plan: Most likely inflammatory now resolved (5) Normocytic anemia: Code(s): D64.9 - Anemia, unspecified Status: Acute Assessment and Plan: Hb is 10.2 will consult shipping room supervisor (6) Hypokalemia: Code(s): E87.6 - Hypokalemia Status: Resolved Assessment and Plan: Potassium is 3.6 (7) Acute kidney injury: Code(s): N17.9 - Acute kidney failure, unspecified Status: Resolved Assessment and Plan: Creat is 0.6 (8) Cellulitis of right leg: Code(s): L03.115 - Cellulitis of right lower limb Status: Acute Assessment and Plan: 78-year-old female with dementia, hypertension, and hypothyroidism who presented to the emergency department earlier today via EMS from home for evaluation after a fall and of a right leg wound. Pt is pleasantly confused. Pt has a superficial wound and blisters on her R leg with surrounding redness and cellulitis. Wound culture is growing strep, blood cultures are negative so far, sounds like a accidental fall. Today the erythema and swelling is much better, patient was able to walk with PT 100 feet, will continue present management. Patient is pleasantly confused denies any fever or chills, awaiting placement, will discharge her tomorrow. (9) Sepsis: Code(s): A41.9 - Sepsis, unspecified organism Status: Acute Assessment and Plan: WCc is 13,500. Pt is on iv cefazolin. Hopeful discharge in 1-2 days time. DS: Summary Hospital Course Reason for hospitalization: Karon Zayas is a 78-year-old female with dementia, hypertension, and hypothyroidism who presented to the emergency department earlier today via EMS from home for evaluation after a fall and of a right leg wound. Given her dementia, she is unable to provide an accurate history. According to EMS run report, the patient lives with her step daughter who reported that the patient slid out of her chair earlier today and was refusing to let the daughter help her up. There was no head trauma or loss of consciousness. She was not injured when she slid out of the chair onto her buttocks. It was noted that she had significant erythema to the right lower extremity, and with further questioning it has been present for a couple of weeks. They assumed it was some sort of rash and have been treating it with topical steroids without benefit. She was found to have cellulitis of that limb and is being admitted in this setting. At the time my evaluation, the patient is sitting in a chair at the side of the bed in is eating dinner. She has a wound noted on that right leg, but cannot tell me how or when it happened (appears old). She does complain of a burning pain in the right leg, mainly with touch. She has had some chills but denies fever and sweats. To her knowledge, she has no history of venous thromboembolism. She denies nausea and vomiting. 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 Hospital Course: 78-year-old female with dementia, hypertension, and hypothyroidism who presented to the emergency department earlier to
[2019-05-30 16:00] VITALS: PULSE 80
== END 2019-05-30 20:15 | DRG 872 ==
LOC: ANHED 11:44 → ANH2MED 12:07
PROVIDERS: Emergency Medicine Emergency Medical Services; Family Medicine; Internal Medicine; Physician Assistant; Admitting Provider Family Medicine; Emergency Provider Emergency Medicine; Visit Provider Family Medicine
DX: A41.9 Sepsis, unspecified organism (principal); L03.115 Cellulitis of right lower limb; N17.9 Acute kidney failure, unspecified; F03.90 Unspecified dementia, unspecified severity, without behavioral disturbance, psychotic disturbance, mood disturbance, and anxiety; I10 Essential (primary) hypertension; E03.9 Hypothyroidism, unspecified; W07.XXXA Fall from chair, initial encounter; Z86.14 Personal history of Methicillin resistant Staphylococcus aureus infection; E78.5 Hyperlipidemia, unspecified; E86.0 Dehydration; E87.6 Hypokalemia; D64.9 Anemia, unspecified; S80.921A Unspecified superficial injury of right lower leg, initial encounter
CPT/HCPCS: 36415; 51701; 80048; 80053; 80074; 81001; 82550; 82607; 82728; 82746; 83540; 83550; 83605; 83735; 84100; 84132; 84439; 84443; 84480; 85025; 85027; 85610; 85730; 86140; 87040; 87070; 87147; 87205; 93005; 93971; 96361; 96365; 96366; 96367; 96375; 97110; 97116; 97161; 97165; 97530; 97535; 99285; A9270; G0378; J0131; J0690; J3475; J3480; J7030; J7040

== ENCOUNTER 2019-08-15 11:09 | Emergency (ER) | payer MEDICARE, SELFPAY ==
--- NOTE | ~2019-08-15 | CT_ITS ---
EXAMINATION: CT brain wo con INDICATION: Altered mental status COMPARISON: None TECHNIQUE: Standard unenhanced head CT. The dose-length product (DLP) was 605.33 mGy-cm. The mA was a djusted according to patient size. Iterative reconstruction technique was employed. FINDINGS: There is no acute intraparenchymal hemorrhage. No evidence of mass lesion. No evidence of a cute infarction. There is mild periventricular and subcortical hypodensity probably related to small vessel ischemic disease. There is mild prominence of the sulci and ventricles related to cerebral atr ophy. Intracranial calcified cerebral atherosclerosis is noted. There are no extra-axial collections. There is no mass effect or midline shift. The orbits and soft tissues are unremarkable. The visuali zed sinuses and mastoid air cells are well aerated. IMPRESSION: 1. No acute intracranial abnormality. 2. Age related findings. Reviewed, dictated and finalized at location A.
--- NOTE | 2019-08-15 11:21 | ED.GENADULT ---
HPI - General Adult General Chief complaint: Psychiatric Symptoms <Joao Whitten DO - Last Filed: 08/15/19 17:19> Stated complaint: PSYCH EVAL <Joao Whitten DO - Last Filed: 08/15/19 17:19> Time Seen by Provider: 08/15/19 19:04 <Joao Whitten DO - Last Filed: 08/15/19 17:19> Source: RN notes reviewed <Joao Whitten DO - Last Filed: 08/15/19 17:19> History of Present Illness HPI narrative: Patient presents emergency department from [facility] via EMS for emotional outburst. [facility] to [facility] ago from assisted living secondary to dementia. Patient has a history of being bipolar. States over the past 2 days the patient has been attempting to leave the facility and refusing to take her medications. States that the patient has been paranoid. The patient currently laying in bed stating that she does not trust me but will answer questions she denies any complaints at this time <Joao Whitten DO - Last Filed: 08/15/19 17:19> Related Data Home medications: Home Medications Medication Instructions Recorded Confirmed [place]-3 Fish Oil 1 cap PO DAILY 05/22/19 05/22/19 Premarin 0.625 mg PO DAILY 05/22/19 05/22/19 calcium carbonate [Tums Extra 300 mg PO TID PRN 05/22/19 05/22/19 Strength Smoothies] chlorzoxazone 500 mg PO HS 05/22/19 05/22/19 cholecalciferol (vitamin D3) 125 mcg PO DIRECTED 05/22/19 05/22/19 [Vitamin D3] fexofenadine [Briseida Allergy] 60 mg PO Q12H 05/22/19 05/22/19 hydrochlorothiazide 25 mg PO DAILY 05/22/19 05/22/19 ibuprofen 800 mg PO TID PRN 05/22/19 05/22/19 levothyroxine 88 mcg PO DAILY 05/22/19 05/22/19 potassium chloride 10 meq PO DAILY 05/22/19 05/22/19 simvastatin 40 mg PO DAILY 05/22/19 05/22/19 <DO Honey [employer] Last Filed: 08/15/19 17:19> Allergies/adverse reactions: Allergies Allergy/AdvReac Type Severity Reaction Status Date / Time levofloxacin Allergy Other Verified 05/22/19 13:49 atorvastatin AdvReac Muscle Pain Verified 05/22/19 13:48 <Joao Whitten DO - Last Filed: 08/15/19 17:19> Review of Systems Review of Systems: Narrative: Gen.: Denies fevers or chills Eyes: Denies eye pain or visual change ENT: Denies congestion Respiratory: Denies shortness of breath or cough CV: Denies chest pain or palpitations GI: Denies abdominal pain nausea, emesis or diarrhea Musculoskeletal: Denies back pain or muscle pain Neuro: Denies numbness, tingling, weakness or focal weakness Skin: Denies rash Psych: See HPI Except as documented, all other systems reviewed and negative <Joao Whitten DO - Last Filed: 08/15/19 17:19> PMFSH Past Medical History Medical History: Medical History Dementia History of MRSA infection Hyperlipidemia Hypertension Hypothyroidism <Joao Whitten DO - Last Filed: 08/15/19 17:19> Surgical History Surgical History: Surgical History (Updated 05/22/19 @ 13:28 by Aury Jara PA-C) History of hysterectomy History of pelvic surgery Pelvic floor reconstruction for prolapse. <Joao Whitten DO - Last Filed: 08/15/19 17:19> Social History Social History: Social History Social History: The patient lives in [place]. Her stepdaughter, Emily, apparently lives at home with her. She has a dog as well. She cannot provide me with her family history, but tells me that she had 1 daughter who is with unclear cause of . She is a lifelong nonsmoker and denies alcohol and drug use. She tells me she used to work at [employer] in [facility]. She designates her stepson, Shahbaz, as her surrogate decision maker. She wishes to be a full code. Gender identity (if verbalized by the patient): Female Spiritual care concerns: No Agree to blood products: Yes <Joao Whitten, - Last Filed: 08/15/19 17
[2019-08-15 11:24] VITALS: BP 117/66; PULSE 85; RESP 14; TEMP 37.2; O2SAT 99
[2019-08-15 11:36] LABS: Basophils Absolute Auto 0.1 K/mm3 (0.0-0.1); Basophils Percent Auto 1.2 % (0.2-1.2); Eosinophils Absolute Auto 0.5 K/mm3 (0-0.3); Eosinophils Percent Auto 6.8 % (0-4.4); Hematocrit 35.6 % (37.0-47.0); Hemoglobin 11.5 g/dL (12.0-15.0); Immature Granulocyte Absolute 0.02 K/mm3 (0.00-0.031); Immature Granulocyte Percent A 0.3 % (0-0.5); Lymphocytes Absolute Auto 1.89 K/mm3 (0.9-3.2); Lymphocytes Percent Auto 25.5 % (18.3-44.2); Mean Corpuscular HGB Conc 32.3 g/dl (32-36); Mean Corpuscular Volume 86.6 fl (80-100); Mean Platelet Volume 9.4 fl (7.4-10.4); Monocytes Absolute Auto 0.5 K/mm3 (0.1-0.6); Neutrophils Absolute Auto 4.4 K/mm3 (1.3-6.7); Neutrophils Percent Auto 59.2 % (45.5-73.1); Platelet Count Result 319 k/mm3 (150-375); Red Blood Count 4.11 M/mm3 (4.2-5.4); Red Cell Distribution Width 13.2 % (11.5-14.5); White Blood Count 7.4 K/mm3 (4.5-10.0)
[2019-08-15 11:46] LABS: Partial Thromboplastin Time 26.4 SECONDS (22.3-36.8)
[2019-08-15 11:47] LABS: Ethanol < 10 mg/dL (<10)
[2019-08-15 11:57] LABS: Alanine Aminotransferase 15 U/L (4-35); Albumin Level 3.9 g/dL (3.5-5.1); Alkaline Phosphatase 98 U/L (38-126); Aspartate Amino Transferase 27 U/L (14-36); Bilirubin,Total 0.7 mg/dL (0.2-1.3); Blood Urea Nitrogen 14 mg/dL (7-17); Calcium 9.2 mg/dL (8.4-10.2); Carbon Dioxide 28 mmol/L (22-30); Chloride 106 mmol/L (98-107); Estimated CRCL calculation 27 ml/min; Estimated Glomerular Filt Rate 40; Glucose 117 mg/dL (65-105); Sodium 140 mmol/L (137-145)
[2019-08-15 12:15] LABS: Add Urine Microscopic? YES; Appearance Urine Clear (Clear); Bacteria Urine Trace /hpf; Bilirubin Urine Negative (Negative); Blood Urine Negative (Negative); Color Urine Yellow (Yellow); Glucose Urine UA Negative (Negative); Hyaline Casts Urine 30-49 /lpf; Ketones Urine Negative (Negative); Leukocyte Esterase Ur Negative LEU/UL (Negative); Mucus Urine Rare /lpf; Nitrate Urine Negative (Negative); Protein Urine 2+ mg/dL (Negative); RBC Urine 0-2 /hpf (0-2); Specific Grav Ur 1.014 (1.001-1.035); Squamous Epithelial Cell Urine Many /hpf (Few); Urobilinogen Urine Negative mg/dL (<2.0); WBC Urine 0-3 /hpf
[2019-08-15 12:18] LABS: Thyroid Stimulating Hormone 0.097 uIU/mL (0.465-4.680)
[2019-08-15 13:19] LABS: Amphetamine Screen Urine Negative (Negative); Barbiturate Screen Urine Negative (Negative); Benzodiazepines Screen Urine Negative (Negative); Cannabinoid Screen Urine Negative (Negative); Cocaine Screen Urine Negative (Negative); Methadone Screen Urine Negative (Negative); Opiate Screen Urine Negative (Negative); Phencyclidine Screen Urine Negative (Negative)
[2019-08-15 17:24] VITALS: BP 150/83; PULSE 83; RESP 14; TEMP 36.9; O2SAT 100
--- NOTE | 2019-08-15 21:30 | PC.NURSE ---
Spoke to ILEANA Anderson, concerning discharge back to [place]. Justin agrees with discharge plan.
[2019-08-15 22:17] VITALS: BP 143/69; PULSE 72; RESP 16; TEMP 36.7; O2SAT 100
[2019-08-15 23:50] VITALS: BP 139/71; PULSE 68; RESP 14; TEMP 36.3; O2SAT 99
== END 2019-08-15 23:50 ==
PROVIDERS: Emergency Medicine; Emergency Provider Emergency Medicine; PCP Family Medicine
DX: R45.6 Violent behavior (principal); F03.90 Unspecified dementia, unspecified severity, without behavioral disturbance, psychotic disturbance, mood disturbance, and anxiety; E78.5 Hyperlipidemia, unspecified; I10 Essential (primary) hypertension; E03.9 Hypothyroidism, unspecified; F31.9 Bipolar disorder, unspecified; Z86.14 Personal history of Methicillin resistant Staphylococcus aureus infection
CPT/HCPCS: 36415; 70450; 80053; 80307; 81001; 84443; 85025; 85610; 85730; 99284

== ENCOUNTER 2020-05-20 14:37 | Emergency (ER) | payer MEDICARE, SELFPAY ==
[2020-05-20] VITALS (11 sets, daily range): BP systolic 90–161; BP diastolic 44–145; PULSE 75–98; RESP 13–23; TEMP 37; O2SAT 98–100
--- NOTE | ~2020-05-20 | CT_ITS ---
EXAMINATION: CT brain wo con, CT cervical spine wo con EXAM DATE: 05/20/2020 15:33 INDICATION: Fall, head injury. TECHNIQUE: Spiral CT of the head was performed without contrast. Axial, coronal and sagittal images were reviewed. Spiral CT of the cervical spine was performed without contrast. Axial images were rev iewed. Coronal and sagittal reformatted images were also reviewed. The dose-length product (DLP) fo r this examination was 605.33 (accession [id number]), 90.10 (accession [id number]) mGy-cm. T he exposure was tailored according to patient size, and iterative reconstruction (ASIR) was used as a dditional dose reduction technique. Comparison is made to prior examination from 08/15/2019. FINDINGS: HEAD CT: Possible small old right cerebellar hemispheric infarction superomedially. There is no acute intraparenchymal hemorrhage. No evidence of intraparenchymal brain mass lesion. No evidence of acu te infarction. There is mild to moderate periventricular and subcortical hypodensity, nonspecific but probably related to small vessel ischemic disease. There is mild to moderate prominence of the sul ci and ventricles related to cerebral atrophy. There is intracranial carotid arteriosclerosis. Th ere is no mass effect or midline shift. There is no obstructive hydrocephalus suspected. There are n o extra-axial collections. There are no acute calvarial fractures. Patient has had bilateral ocular lens surgery. Small left lateral frontal scalp contusion. The visualized sinuses and mastoid air ce lls are well aerated. CERVICAL CT: Some limitations from patient motion. The facet joints on the left have advanced arthrit is and/or fused from C3 through C5, and partially fused on the right at those levels. There is no ev idence of acute cervical fracture. The odontoid process is intact. Pre-dens space is normal. Preve rtebral soft tissue is normal. There are no soft tissue abnormalities identified. There is no disc space widening or traumatic vertebral body subluxation suspected. Moderate mid cervical disc disease . A detailed level by level evaluation of spondylosis can be added as addendum if requested. IMPRESSION: 1. No acute intracranial findings or cervical fracture. 2. Small left frontal scalp contusion. 3. Age-related intracranial findings. 4. Spondylosis. Reviewed, dictated and finalized at location A. IMPRESSION: 1. No acute intracranial findings or cervical fracture. 2. Small left frontal scalp contusion. 3. Age-related intracranial findings. 4. Spondylosis.
--- NOTE | ~2020-05-20 | XR_ITS ---
XR hip LT 2V w AP pelvis DATE: 05/20/2020 15:43 INDICATION: Fall. Left hip pain. TECHNIQUE: AP pelvis. AP and crosstable lateral views of left hip COMPARISON: None FINDINGS: The pubic symphysis and sacroiliac joints are intact. Mild osteitis pubis. No pelvic fracture or bone destruction. There is mild bilateral hip osteoarthritis. There is fracture of the left greater trochanter. IMPRESSION: Left greater trochanteric fracture Reviewed, dictated and finalized at location B.
--- NOTE | ~2020-05-20 | CT_ITS ---
EXAMINATION: CT hip LT arie nieto EXAM DATE: 05/20/2020 18:05 INDICATION: Fall, left hip intertrochanteric fracture. TECHNIQUE: Spiral CT hip LT was performed without contrast. Axial, coronal and sagittal images wer e reviewed. The dose-length product (DLP) for this examination was 157.81 mGy-cm. The exposure was tailored according to patient size (auto mA exposure control), and iterative reconstruction (ASIR) wa s used as additional dose reduction technique. There is no prior study for comparison. FINDINGS: There is acute fracture through the greater trochanter of the left hip. No definite fractur e line identified through the femoral neck or intertrochanteric region. The rami, acetabulum, sacrum are intact. IMPRESSION: Acute left greater trochanteric fracture without definite extension into the intertrocha nteric/femoral neck region. Reviewed, dictated and finalized at location A. IMPRESSION: Acute left greater trochanteric fracture without definite extensio n into the intertrochanteric/femoral neck region.
--- NOTE | 2020-05-20 14:58 | ECG_ITS ---
Measurements Intervals [place] Rate: 75 P: 86 MO: 166 QRS: 16 QRSD: 85 T: 74 QT: 384 QTc: 429 Interpretive Statements SINUS RHYTHM WITH SINUS ARRHYTHMIA BORDERLINE ST-T WAVE ABNORMALITY- ANT/HIGH LAT LEADS BASELINE ARTIFACT- I, II, III, AVL, AVF, V1 BORDERLINE ECG Electronically Signed On 05-20-2020 15:42:23 CDT by Stephan Branham D.O.
[2020-05-20 15:35] LABS: Basophils Percent Auto 0.5 % (0.2-1.2); Eosinophils Absolute Auto 0.1 K/mm3 (0-0.3); Eosinophils Percent Auto 0.9 % (0-4.4); Hemoglobin 13.7 g/dL (12.0-15.0); Immature Granulocyte Absolute 0.04 K/mm3 (0.00-0.031); Immature Granulocyte Percent A 0.5 % (0-0.5); Lymphocytes Absolute Auto 1.78 K/mm3 (0.9-3.2); Lymphocytes Percent Auto 22.9 % (18.3-44.2); Mean Corpuscular HGB Conc 35.1 g/dl (32-36); Mean Corpuscular Hemoglobin 30.9 pg (26-34); Mean Corpuscular Volume 87.8 fl (80-100); Mean Platelet Volume 9.6 fl (7.4-10.4); Monocytes Absolute Auto 0.6 K/mm3 (0.1-0.6); Monocytes Percent Auto 7.3 % (2.6-8.5); Neutrophils Absolute Auto 5.3 K/mm3 (1.3-6.7); Neutrophils Percent Auto 67.9 % (45.5-73.1); Platelet Count Result 295 k/mm3 (150-375); Red Blood Count 4.44 M/mm3 (4.2-5.4); Red Cell Distribution Width 12.6 % (11.5-14.5); White Blood Count 7.8 K/mm3 (4.5-10.0)
[2020-05-20 15:47] LABS: Alanine Aminotransferase 16 U/L (4-35); Albumin Level 4.2 g/dL (3.5-5.1); Alkaline Phosphatase 104 U/L (38-126); Anion Gap 7 mmol/L (8-16); Aspartate Amino Transferase 29 U/L (14-36); Bilirubin,Total 0.8 mg/dL (0.2-1.3); Blood Urea Nitrogen 17 mg/dL (7-17); Calcium 9.3 mg/dL (8.4-10.2); Carbon Dioxide 32 mmol/L (22-30); Chloride 99 mmol/L (98-107); Estimated Glomerular Filt Rate > 60; Glucose 114 mg/dL (65-105); Potassium 3.4 mmol/L (3.4-5.0); Sodium 138 mmol/L (137-145)
--- NOTE | 2020-05-20 17:37 | ED.GENADULT ---
HPI - General Adult General Chief complaint: Fall Stated complaint: FALL Source: EMS History of Present Illness HPI narrative: Patient is a 79 y/o female brought in by EMS for a fall. Patient was found lying on ground by staff at [facility] [place]. Her fall was not witnessed. She was in a chair prior to the fall. Patient is confused at not able tell how she fell or where she has pain. Related Data Home Medications Medication Instructions Recorded Confirmed Cocoa-3 Fish Oil 1 cap PO DAILY 05/22/19 05/22/19 Premarin 0.625 mg PO DAILY 05/22/19 05/22/19 calcium carbonate [Tums Extra 300 mg PO TID PRN 05/22/19 05/22/19 Strength Smoothies] chlorzoxazone 500 mg PO HS 05/22/19 05/22/19 cholecalciferol (vitamin D3) 125 mcg PO DIRECTED 05/22/19 05/22/19 [Vitamin D3] fexofenadine [Briseida Allergy] 60 mg PO Q12H 05/22/19 05/22/19 hydrochlorothiazide 25 mg PO DAILY 05/22/19 05/22/19 ibuprofen 800 mg PO TID PRN 05/22/19 05/22/19 levothyroxine 88 mcg PO DAILY 05/22/19 05/22/19 simvastatin 40 mg PO DAILY 05/22/19 05/22/19 alprazolam See Rx Instructions .ROUTE .COMPLEX 05/20/20 05/20/20 cetirizine [Zyrtec] 10 mg PO DAILY 05/20/20 05/20/20 olanzapine mg HS 05/20/20 omega-3 fatty acids-vitamin E cap DAILY 05/20/20 [Fish Oil] potassium chloride meq PO 05/20/20 trazodone HS 05/20/20 Allergies Allergy/AdvReac Type Severity Reaction Status Date / Time levofloxacin Allergy Other Verified 05/20/20 15:01 atorvastatin AdvReac Muscle Pain Verified 05/20/20 15:01 Review of Systems Review of Systems: ROS unobtainable: Yes unobtainable due to mental status [facility] Past Medical History Medical History (Updated 05/22/20 @ 00:00 by Maxi Franco) Dementia History of MRSA infection Hyperlipidemia Hypertension Hypothyroidism Surgical History Surgical History History of hysterectomy History of pelvic surgery Pelvic floor reconstruction for prolapse. Social History Social History Social History: The patient lives in [place]. Her stepdaughter, Emily, apparently lives at home with her. She has a dog as well. She cannot provide me with her family history, but tells me that she had 1 daughter who is with unclear cause of . She is a lifelong nonsmoker and denies alcohol and drug use. She tells me she used to work at [employer] in [facility]. She designates her stepson, Shahbaz, as her surrogate decision maker. She wishes to be a full code. Gender identity (if verbalized by the patient): Female Spiritual care concerns: No Agree to blood products: Yes Exam Const: General: no acute distress and well developed Orientation/consciousness: confusion HENMT: Head: normocephalic Ears: external ears normal General nose exam: Normal external nose present Eyes: General: appearance normal, both eyes and all related structures Conjunctivae: conjunctivae normal Neck: Neck: normal visual inspection and full ROM Chest: Chest palpation & inspection: normal inspection of the chest and no tenderness Resp: Effort & Inspection: normal respiratory effort Auscultation: clear to auscultation bilaterally Cardio: Rate: regular rate Rhythm: regular rhythm GI: GI Palp: No abdominal tenderness and Yes Soft to palpation Skin: General skin exam: normal color and turgor normal Neuro: General: confusion Cognition (Neuro): normal cognition Extrem: General: normal to inspection, full ROM and no pedal edema Right lower extremity: hip/thigh Details: tenderness (lateral aspect of left hip) Course Consultations Consultation #1: Discussed with Dr. Myers, who agrees with plan for discharge and will follow. He states that patient may have partial weight bearing as able. Date: 05/20/20 Time: 18:36 Vital Signs Vital signs: Vital Signs Temperature 37.0 C 05/20/20 14:37 Pulse Rate 82 05/20/20 14:37
[2020-05-20] MEDS: KETOROLAC 15 MG/ML VIAL (*BKC) IV PUSH (17:47)
--- NOTE | 2020-05-20 18:45 | PC.NURSE ---
[facility] to [facility] ETA 2200 Trip# [id number]
--- NOTE | 2020-05-20 19:07 | PC.NURSE ---
Pt found attempting to get out of bed. Pt states I need to go home. Bed alarm placed under pt at this time.
--- NOTE | 2020-05-20 19:21 | PC.NURSE ---
bed alarm placed under pt due to her being seen trying to crawl off end of stretcher.
--- NOTE | 2020-05-20 19:25 | PC.NURSE ---
dr casillas on phone with daughter regarding decision to d/c back to [facility] home. phone report to mellissa at [facility] at [phone]
--- NOTE | 2020-05-21 00:09 | PC.NURSE ---
contacted [employer] about new eta on patient. new eta [id number]
[2020-05-21 01:16] VITALS: BP 118/74; PULSE 91; RESP 16; O2SAT 96
--- NOTE | 2020-05-21 02:20 | PC.NURSE ---
[facility] called and pushed eta time to 0130. they called again at 0150 to inform me that they were called to a 911 call and another rig is on their way
--- NOTE | 2020-05-21 02:31 | PC.NURSE ---
felix has arrived
== END 2020-05-21 02:45 ==
PROVIDERS: Emergency Provider Emergency Medicine; PCP Family Medicine
DX: S72.112A Displaced fracture of greater trochanter of left femur, initial encounter for closed fracture (principal); F03.90 Unspecified dementia, unspecified severity, without behavioral disturbance, psychotic disturbance, mood disturbance, and anxiety; Z86.14 Personal history of Methicillin resistant Staphylococcus aureus infection; E78.5 Hyperlipidemia, unspecified; I10 Essential (primary) hypertension; E03.9 Hypothyroidism, unspecified; M47.812 Spondylosis without myelopathy or radiculopathy, cervical region; R94.31 Abnormal electrocardiogram [ECG] [EKG]; W19.XXXA Unspecified fall, initial encounter
CPT/HCPCS: 36415; 70450; 72125; 73502; 73700; 80053; 85025; 93005; 96374; 99284; A9270; J1885